=== PATIENT | female | born 1990 | race African-American/Black ===

== ENCOUNTER 2019-05-30 16:04 | Observation (INO) ==
[2019-05-30 17:10] LABS: Basophils % 0.2 % (0.0-0.8); Eosinophils # 0.1 10*3/uL (0.0-0.87); Eosinophils % 0.6 % (0.00-10.9); Hematocrit 37.3 VOL% (35.7-47.0); Hemoglobin 12.2 GM/DL (12.0-16.0); Immature Granulocytes % 0.2 %; Immature Granulocytes Absolute 0.02 #; Lymphocytes # 1.4 10*3/uL (1.4-4.0); Lymphocytes % 17.4 % (21.3-54.2); Mean Corpuscular HGB Conc 32.7 GM/DL (32-36); Mean Corpuscular Volume 83.4 FL (87-102); Monocytes % 5.8 % (1.7-12.7); Neutrophils % 75.8 % (38.7-73.9); Platelet Count 267 T/CUMM (130-400); Red Blood Count 4.47 MC/CUMM (3.8-5.5); Red Cell Distribution Width 13.9 % (9.3-17.3); White Blood Count 8.2 T/CUMM (4-12)
[2019-05-30 17:17] LABS: Apearance,Urine CLEAR (Clear); Bilirubin,Urine Negative (Negative); Blood, Urine Negative (Negative); Glucose,Urine (UA) Negative (Negative); Ketones,Urine Negative (Negative); Mucus,Urine Many /LPF (Occasional); Nitrite,Urine Negative (Negative); Protein,Urine Negative; RBC,Urine 2 /HPF (0-4); Urine Color Yellow (Yellow); WBC,Urine 4 /HPF (0-6)
[2019-05-30 17:29] LABS: Beta HCG Titer < 1.00 mIU/ml (1-3); Blood Urea Nitrogen 8 MG/DL (7-18); Calcium 9.2 MG/DL (8.5-10.1); Estimated Glom Filtration Rate 92 ML/MIN; Glucose 87 MG/DL (74-106); Osmolality,Calculated 275.4 MOS/KG (273-304)
[2019-05-30] MEDS ORDERED: LACTATED RINGERS 1,000 ML IV SCH (17:30)
[2019-05-30] MEDS ORDERED: cefTRIAXone 1,000 MG in SODIUM CHLORIDE 0.9% 100 ML IV STA (17:45)
[2019-05-30] MEDS ORDERED: DOXYCYCLINE HYCLATE 100 MG CAPSULE PO STA (18:45)
[2019-05-30] MEDS ORDERED: HYDROmorphone 2 MG/1 ML VIAL IM STA (19:22)
[2019-05-30] MEDS ORDERED: IBUPROFEN 800 MG TABLET PO PRN (19:24)
[2019-05-30] MEDS ORDERED: MAGNESIUM HYDROXIDE SUSP 30 ML UDCUP PO PRN (19:24)
[2019-05-30] MEDS ORDERED: BISACODYL 10 MG SUPP RECTAL PRN (19:24)
[2019-05-30] MEDS ORDERED: HYDROmorphone 2 MG/1 ML VIAL IV STA (19:27)
[2019-05-30] MEDS: ONDANSETRON 4 MG/2 ML VIAL IV PRN (22:17)
[2019-05-31] MEDS: DOCUSATE SODIUM 100 MG CAPSULE PO SCH ×2 (03:01→08:23)
[2019-05-31] MEDS: LACTATED RINGERS 1,000 ML IV SCH ×3 (03:01→16:16)
[2019-05-31] MEDS: ACETAMINOPHEN 325 MG TABLET PO PRN ×2 (03:04→13:53)
[2019-05-31 05:06] LABS: Basophils % 0.3 % (0.0-0.8); Eosinophils # 0.1 10*3/uL (0.0-0.87); Eosinophils % 1.8 % (0.00-10.9); Hematocrit 32.7 VOL% (35.7-47.0); Hemoglobin 10.3 GM/DL (12.0-16.0); Immature Granulocytes % 0.3 %; Immature Granulocytes Absolute 0.02 #; Lymphocytes # 1.9 10*3/uL (1.4-4.0); Lymphocytes % 28.3 % (21.3-54.2); Mean Corpuscular HGB Conc 31.5 GM/DL (32-36); Mean Corpuscular Volume 84.9 FL (87-102); Mean Platelet Volume 11.1 FL (9.6-12.0); Monocytes % 8.5 % (1.7-12.7); Neutrophils % 60.8 % (38.7-73.9); Platelet Count 223 T/CUMM (130-400); Red Blood Count 3.85 MC/CUMM (3.8-5.5); Red Cell Distribution Width 14.2 % (9.3-17.3); White Blood Count 6.6 T/CUMM (4-12)
[2019-05-31] MEDS: ONDANSETRON 4 MG/2 ML VIAL IV PRN (08:30)
[2019-05-31] MEDS ORDERED: DOXYCYCLINE HYCLATE 100 MG CAPSULE PO SCH ×2 (09:00)
[2019-05-31 14:06] VITALS: BP 103/59
[2019-05-31] MEDS ORDERED: cefTRIAXone 1,000 MG in SYRINGE 1 EACH IV SCH (18:00)
== END 2019-05-31 16:10 | disposition home or self-care (01) ==
LOC: N.ED 16:04 → N.EDINP 16:04 → N.2E 20:50
PROVIDERS: ADMIT Obstetrics & Gynecology; ATTEND Obstetrics & Gynecology